=== PATIENT | male | born 1980 | race Two or more races ===

== ENCOUNTER 2019-06-10 11:46 | Emergency (ER) | payer OTHER ==
[2019-06-10 11:53] VITALS: TEMP 97.9; BMI 23.3
[2019-06-10] MEDS ORDERED: SODIUM CHLORIDE 1,000 ML IV STA (14:01)
[2019-06-10] MEDS ORDERED: KETOROLAC TROMETHAMINE 30 MG/1 ML VIAL IVPUSH ONE (14:02)
[2019-06-10] MEDS ORDERED: KETOROLAC TROMETHAMINE 30 MG/1 ML VIAL ONE (14:18)
[2019-06-10 14:35] LABS: BASO % 0.3 % (0-2.0); HEMATOCRIT 42.9 % (35.4-49); HEMOGLOBIN 14.6 GM/dL (11.7-16.9); MCH 27.9 pg (25.7-33.7); MEAN CELL VOLUME 82.1 fl (80-96); MEAN PLT VOLUME 7.9 fl (7.5-11.1); MONO % 2.9 % (3.8-10.2); NEUT % 83.8 % (42.8-82.8); PLATELET COUNT 178 K/MM3 (134-434); RBC 5.23 M/mm3 (4.00-5.60); RDW 13.9 % (11.9-15.9); WHITE BLOOD COUNT 9.1 K/mm3 (4.0-10.0)
--- NOTE | 2019-06-10 14:56 | PDOC ---
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 Denies any medical history. Patient denies drug or alcohol use. Timing/Duration: reports: other Severity: Yes: mild, moderate Associated Symptoms: reports: fatigue. denies: tingling in legs/feet, trouble walking, vision changes Past History - Travel Traveled outside of the country in the last 30 days: No Close contact w/someone who was outside of country & ill: No - Past Medical History Allergies/Adverse Reactions: Allergies Allergy/AdvReac Type Severity Reaction Status Date / Time No Known Allergies Allergy Verified 06/10/19 11:54 Home Medications: Ambulatory Orders NK [No Known Home Medication] 11/18/14 COPD: No - Psycho Social/Smoking Cessation Hx Smoking History: Never smoked Hx Alcohol Use: No Drug/Substance Use Hx: No Patient Lives Alone: No Neuro Specific PMHX - Complaint Specific PMHX Migraine: No Review of Systems - Review of Systems Able to Perform ROS?: Yes Constitutional: Yes: Loss of Appetite, Weakness HEENTM: No: Symptoms Reported Respiratory: No: Symptoms reported Cardiac (ROS): No: Symptoms Reported ABD/GI: Yes: Diarrhea, Poor Appetite, Poor Fluid Intake, Abdominal cramping : No: Symptoms Reported Musculoskeletal: No: Symptoms Reported Integumentary: No: Symptoms Reported Neurological: Yes: Headache *Physical Exam - Vital Signs Last Vital Signs Temp Pulse Resp BP Pulse Ox 97.9 F 109 H 16 143/86 98 06/10/19 11:51 06/10/19 11:51 06/10/19 11:51 06/10/19 11:51 06/10/19 11:51 - Physical Exam General Appearance: Yes: Nourished, Appropriately Dressed. No: Apparent Distress HEENT: positive: EOMI, VIJAYA, TMs Normal, Pharynx Normal (dry). negative: Pale Conjunctivae Neck: positive: Normal Thyroid, Supple Respiratory/Chest: positive: Lungs Clear, Normal Breath Sounds. negative: Respiratory Distress, Accessory Muscle Use Cardiovascular: positive: Regular Rhythm, Regular Rate (88). negative: Murmur Gastrointestinal/Abdominal: positive: Soft. negative: Tenderness Integumentary: positive: Normal Color, Warm, Moist Neurologic: positive: Normal Mood/Affect, Motor Strength 5/5 (ambulatory, leg raise hand grasp x2) ED Treatment Course - LABORATORY CBC & Chemistry Diagram: 06/10/19 14:05 06/10/19 14:05 - ADDITIONAL ORDERS Additional order review: 06/10/19 14:05 RBC 5.23 MCV 82.1 MCHC 34.0 RDW 13.9 MPV 7.9 Neutrophils % 83.8 H Lymphocytes % 13.0 Monocytes % 2.9 L Eosinophils % 0.0 Basophils % 0.3 - Medications Given in the ED: ED Medications Discontinued Medications Generic Name Dose Route Start Last Admin Trade Name Freq PRN Reason Stop Dose Admin Ketorolac Tromethamine 30 mg 06/10/19 14:02 06/10/19 14:27 Toradol Injection - IVPUSH 06/10/19 14:03 30 mg ONCE ONE Administration Medical Decision Making - Medical Decision Making 06/10/19 13:59 Chief complaint: Generalized fatigue, decreased appetite, headache, lower abdominal cramping 3 weeks ago associated diarrhea. 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 Plan: Labs, urine, IV fluids 06/10/19 15:01 Laboratory Tests 06/10/19 06/10/19 14:05 14:05 WBC 9.1 Hgb 14.6 Hct 42.9 MPV 7.9 Neutrophils % 83.8 H Monocytes % 2.9 L Lipase 173 06/10/19 15:57 Laboratory Tests 06/10/19 06/10/19 06/10/19 14:05 14:05 14:05 WBC 9.1 Hgb 14.6 Hct 42.9 Neutrophils % 83.8 H Monocytes % 2.9 L Sodium 136 Potassium 3.5 Carbon Dioxide 26 BUN 13.6 Creatinine 1.1 Est GFR (CKD-EPI)AfAm 98.87 Est GFR (CKD-EPI)NonAf 85.31 Random Glucose 98 Calcium 8.3 L Magnesium 2.4 Total Bilirubin 0.5 AST 79 H ALT 60 Alkaline Phosphatase 83 Total Protein 7.3 Albumin 3.6 Lipase 173 Patient states feeling better. Patient Recommended to sleep eat well-balanced meals and drink plenty of fluids Discharge - Discharge Information Problems reviewed: Yes Clinical Impression/Diagnosis: Fatigue Condition: Improved Disposition: HOME - Follow up/Referral - Patient Discharge Instructions Patient Printed Discharge Instructions: DI for Fatigue Additional Instructions: Rest, drink plenty of fluids eat well-balanced meals throughout the day/night . Follow-up with your primary care physician if symptoms continue or worsen - Post Discharge Activity
[2019-06-10 15:01] LABS: ALBUMIN 3.6 g/dl (3.4-5.0); BILIRUBIN,TOTAL 0.5 mg/dL (0.2-1); BLOOD UREA NITROGEN 13.6 mg/dL (7-18); CALCIUM 8.3 mg/dL (8.5-10.1); CREATININE 1.1 mg/dL (0.55-1.3); MAGNESIUM 2.4 mg/dL (1.8-2.4); POTASSIUM 3.5 mmol/L (3.5-5.1); TOT PROT 7.3 g/dl (6.4-8.2)
[2019-06-10 15:27] VITALS: BP 102/60; PULSE 92
== END 2019-06-10 16:00 | disposition home or self-care (01) ==
LOC: JER 11:46
PROC: 3E0337Z Introduction of Electrolytic and Water Balance Substance into Peripheral Vein, Percutaneous Approach (ICD-10-PCS; principal; 2019-06-10)
PROC: 3E0333Z Introduction of Anti-inflammatory into Peripheral Vein, Percutaneous Approach (ICD-10-PCS; 2019-06-10)
DX: R53.83 Other fatigue (principal)
CPT/HCPCS: 36415; 80053; 83690; 83735; 85025; 96361; 96374; 99283-25; J7030